=== PATIENT | male | born 2000 | race Caucasian/White ===

== ENCOUNTER → 2023-08-17 | Outpatient (CLI) | payer OTHER ==
--- NOTE | 2023-08-17 16:37 | XR ---
EXAMINATION TYPE: XR hand complete RT DATE OF EXAM: 08/17/2023 3:26 PM CLINICAL INDICATION:Male, 23 years old with history of S63.659A SPRAIN OF METACARPOPHALANGEAL JOINT O F UN; PHH COMPARISON: None TECHNIQUE: XR hand complete RT Frontal, lateral and oblique views were obtained. FINDINGS: Normal alignment of the visualized joints. No acute osseous pathology is identified. No e vidence of soft tissue swelling. IMPRESSION: No acute osseous pathology.
== END | disposition home or self-care (01) ==
LOC: RADXRMAIN 15:15
PROVIDERS: ATTEND Emergency Medicine
DX: S63.659A Sprain of metacarpophalangeal joint of unspecified finger, initial encounter (principal)

== ENCOUNTER → 2023-08-30 | Outpatient (CLI) | payer OTHER ==
--- NOTE | 2023-08-30 13:13 | XR ---
EXAMINATION TYPE: XR hand complete RT DATE OF EXAM: 08/30/2023 COMPARISON: 08/17/2023 HISTORY: 23-year-old male with right hand pain in right thumb pain. S63.659D SPRAIN OF METACARPOPHAL ANGEAL JOINT OF UN TECHNIQUE: 3 views FINDINGS: No acute fracture, subluxation, or dislocation. No periostitis or osteolysis. Joint spaces are maintained. IMPRESSION: No acute or healing fracture is seen.
== END | disposition home or self-care (01) ==
LOC: LABWHC1 12:08
PROVIDERS: ATTEND Emergency Medicine
DX: S63.659D Sprain of metacarpophalangeal joint of unspecified finger, subsequent encounter (principal); X58.XXXD Exposure to other specified factors, subsequent encounter